=== PATIENT | female | born 1965 | race Caucasian/White ===

== ENCOUNTER → 2018-02-03 15:39 | Outpatient (POV) | payer OTHER, SELFPAY | PROVIDERS: Visit Provider Nurse Practitioner Acute Care | DX: Z00.00 Encounter for general adult medical examination without abnormal findings (principal) ==

== ENCOUNTER → 2018-03-25 15:11 | Outpatient (POV) | payer OTHER, SELFPAY | PROVIDERS: Visit Provider Dermatology | DX: Z00.00 Encounter for general adult medical examination without abnormal findings (principal) ==

== ENCOUNTER → 2018-06-05 14:09 | Outpatient (CLI) | payer BC, SELFPAY ==
--- NOTE | 2018-06-05 14:17 | XR_ITS ---
XR sacrum coccyx min 2V CLINICAL INDICATION: Posttraumatic pain ITS.REASON: INJURY COCCYX ORDERING PHYSICIAN: Ayanna Sabillon PATIENT AGE: 52 years Comparison: None FINDINGS: No fracture or dislocation. Minimal vascular calcification noted IMPRESSION: No acute finding
== END ==
PROVIDERS: PCP Nurse Practitioner Family; Visit Provider Nurse Practitioner Family
DX: S39.92XA Unspecified injury of lower back, initial encounter (principal); M53.3 Sacrococcygeal disorders, not elsewhere classified
CPT/HCPCS: 72220

== ENCOUNTER → 2019-02-20 14:10 | Outpatient (CLI) | payer BC, SELFPAY ==
--- NOTE | 2019-02-20 14:16 | CA_ITS ---
APPROVED REPORT EXAM: Comprehensive 2D, Doppler, and color-flow Echocardiogram Lineman: Keyana Carey RDCS Ht: 5 ft 3 in Wt: 152lbs BSA: 1.72 BP: 110/76 mmHg Indications: Shortness of Breath, Hypertension/HDD,RECENT PNEUMONIA 2D Dimensions LVOT 1.84 cm (M/F) 1.5-2.5 M-Mode Dimensions RVDd 1.75 cm (0.9-2.6) LVDd 4.23 cm (3.5-5.7) LVDs 2.68 cm (3.5-5.7) IVSd 1.11 cm (0.6-1.1) PWd 0.92 cm (0.6-1.1) EF (Teich) 52.60% FS 26.70% EDV (Teich) 79.90 mL ESV (Teich) 37.90 mL LV Diastology E/A Ratio 0.98 Mitral Valve MV A Velocity 68.00 (40-130 cm/s) Left Ventricle Left atrium is mildly enlarged, left ventricle is normal size, mild concentric left ventricular hypertrophy, visually estimated ejection fraction 55% with no regional wall motion abnormality, grade 1 diastolic dysfunction seen without tissue Doppler evidence of raise left atrial pressure. Right Ventricle Right atrium and right ventricular normal size and contractility. Aortic Valve Aortic valve is minimally thickened and fibrosed., There is no aortic stenosis aortic insufficiency. Mitral Valve Mitral valve is grossly normal, there is mild mitral regurgitation. Pulmonic Valve Tricuspid valve is grossly normal, there is mild tricuspid regurgitation. Great Vessels Aortic root is normal size. Pericardium No significant pericardial effusion noted. Conclusion 1. Mildly enlarged left atrium, normal left ventricular size, mild concentric left ventricular hypertrophy, visually estimated ejection fraction 55% with no regional wall motion abnormality, grade 1 diastolic dysfunction seen without tissue Doppler evidence of raise left atrial pressure. 2. Mild mitral and tricuspid regurgitation 3. No significant pericardial effusion noted. Electronically signed by : Joseph Bolden, 02/20/2019 20:50:37
--- NOTE | 2019-02-20 14:51 | XR_ITS ---
PROCEDURE: XR CHEST 2V CLINICAL HISTORY: PNEUMONIA OF RIGHT LUNG COMPARISON: No exams were available for comparison FINDINGS: The cardiomediastinal silhouette and pulmonary vascularity are within normal limits. The lungs are clear without infiltrates, suspicious nodules, or pleural effusions. No acute bony abnormalities. IMPRESSION: No acute findings. Dictated by: Fortino Barrow MD 02/20/2019 15:33 Electronically signed by Fortino Barrow MD in [place] 02/20/2019 15:33
== END ==
PROVIDERS: PCP Nurse Practitioner Family; Visit Provider Nurse Practitioner
DX: J18.9 Pneumonia, unspecified organism (principal); R06.02 Shortness of breath
CPT/HCPCS: 71046; 93306

== ENCOUNTER → 2021-04-26 17:51 | Outpatient (CLI) | payer OTHER, SELFPAY | PROVIDERS: Visit Provider Nurse Practitioner | DX: U07.1 COVID-19 (principal) | CPT/HCPCS: C9803; U0003; U0005 ==

== ENCOUNTER → 2022-01-23 15:25 | Outpatient (POV) | payer OTHER, SELFPAY | PROVIDERS: Visit Provider Dermatology | DX: Z00.00 Encounter for general adult medical examination without abnormal findings (principal) ==

== ENCOUNTER 2022-10-21 08:15 | Emergency (ER) | payer BC, SELFPAY ==
[2022-10-21 08:15] VITALS: BP 149/81; PULSE 87; RESP 18; TEMP 36.7; O2SAT 97; BMI 26.7
--- NOTE | 2022-10-21 08:35 | EXP.UTC ---
Discharge Plan Disposition Patient Disposition: Home, Self-Care Condition: Good Prescriptions Prescriptions: New amoxicillin [amoxicillin] 875 mg tablet 875 mg PO Q12H Qty: 20 0RF benzonatate [benzonatate] 100 mg capsule 100 mg PO TIDP PRN (Reason: Cough) Qty: 30 0RF methylprednisolone 4 mg Tablets,Dose Pack 4 mg PO DIRECTED Qty: 21 0RF No Action estradiol 1 mg tablet 1 mg PO DAILY Rx Instructions: off 1 week; repeat cycle estradiol 0.5 mg tablet 0.5 mg PO DAILY buspirone 10 mg tablet 10 mg PO BID hydrochlorothiazide 25 mg tablet 25 mg PO DAILY ropinirole 2 MG tablet 2 mg PO DAILY furosemide 20 MG tablet 20 mg PO DAILY Label Comments: take 1 tablet by mouth once daily metoprolol tartrate 25 MG tablet 25 mg PO DAILY methylprednisolone 4 MG tablets,dose pack 4 mg PO DIRECTED 6 Days Qty: 21 0RF amoxicillin-pot clavulanate 1 EACH tablet 1 tab PO Q12H 10 Days Qty: 20 0RF Lactobacillus acidophilus 1 EACH capsule 1 each PO BID 30 Days Qty: 60 0RF promethazine-DM 120 ML syrup 5 ml PO Q6HP PRN (Reason: Cough) Qty: 240 0RF Referrals Follow up/Referrals: Ayanna Sabillon APRN [Primary Care Provider] - See instructions Activity Restrictions/Add. Instructions Additional Instructions/Restrictions: Drink plenty of fluids. Take tylenol or ibuprofen for pain or fever. Take the medications as directed. Follow up with your regular doctor. GO TO THE ER FOR ANY WORSENING SYMPTOMS Don't start the oral steroids until tomorrow, since you had the shot here today. Clinical Impressions Clinical Impression: Pharyngitis, Sinusitis Stand Alone Forms Stand Alone Forms: Work/School Release Instructions Patient Instructions: Sinusitis, DI for Sinusitis Discharge ED Provider: Alton Rodriges [facility] General Stated complaint: cough,sore throat,headache Mode of Arrival: Ambulatory Source of Information: Patient Limitations: No Limitations Time Seen by Provider: 10/21/22 08:34 Description of Symptoms (Recalled from Triage Doc. by RN): Patient states she has a sore throat, cough and runny nose. States the sore throat comes and goes and is worse in the mornings. HEENT Symptoms (Recalled from RN notes): Yes Resp Symptoms (Recalled from RN notes): No Skin Symptoms (Recalled from RN notes): No MS Symptoms (Recalled from RN notes): No Functional Status (Recalled from RN notes): wnl History of Present Illness Provider Complaint: She states that for the past 3 days she has had worsening sore throat and sinus congestion; Related Data Home Medications Medication Instructions Recorded Confirmed buspirone 10 mg tablet 10 mg PO BID STOMACH ISSUES 05/04/19 06/05/19 estradiol 0.5 mg tablet 0.5 mg PO DAILY HORMONE REPLACEMENT 05/04/19 06/05/19 estradiol 1 mg tablet 1 mg PO DAILY HORMONE REPLACEMENT 05/04/19 06/05/19 hydrochlorothiazide 25 mg tablet 25 mg PO DAILY Fluid 05/04/19 06/05/19 furosemide 20 mg tablet 20 mg PO DAILY Fluid 06/05/19 06/05/19 metoprolol tartrate 25 mg tablet 25 mg PO DAILY Hypertension 06/05/19 06/05/19 ropinirole 2 mg tablet 2 mg PO DAILY RLS 06/05/19 06/05/19 Previous Rx's Medication Instructions Recorded Lactobacillus acidophilus 10 1 each PO BID 30 days #60 caps 06/05/19 billion cell capsule amoxicillin 875 mg-potassium 1 tab PO Q12H 10 days #20 tabs 06/05/19 clavulanate 125 mg tablet methylprednisolone 4 mg tablets in 4 mg PO DIRECTED 6 days ##21 06/05/19 a dose pack promethazine-DM 6.25 mg-15 mg/5 mL 5 ml PO Q6HP PRN Cough ##240 06/05/19 oral syrup amoxicillin 875 mg tablet 875 mg PO Q12H #20 tabs 10/21/22 benzonatate 100 mg capsule 100 mg PO TIDP PRN Cough #30 caps 10/21/22 methylprednisolone 4 mg tablets in 4 mg PO DIRECTED #21 tabs 10/21/22 a dose pack Allergies Allergy/AdvReac Type Severity Reaction Status Date / Time omeprazole [From Prilosec] Allergy Se
[2022-10-21 08:39] LABS: UTC Strep Screen (Rapid) Negative (Negative)
[2022-10-21 09:10] VITALS: BP 149/81; PULSE 87; RESP 18; TEMP 36.7; O2SAT 97
== END 2022-10-21 09:10 | disposition home or self-care (01) ==
PROVIDERS: Emergency Provider Nurse Practitioner Family; PCP Nurse Practitioner Family
DX: J01.90 Acute sinusitis, unspecified (principal); J02.9 Acute pharyngitis, unspecified
CPT/HCPCS: 87880; 96372; 99204; 99212; G0463; J0696

== ENCOUNTER → 2023-01-01 08:50 | Outpatient (CLI) | payer BC, SELFPAY ==
--- NOTE | 2023-01-01 08:54 | XR_ITS ---
FINAL REPORT CLINICAL HISTORY: SCREENING FOR OSTEOPOROSIS we will, premenopausal female FINDINGS: Using L1-4, the bone mineral density of the spine is now 1.241 g/cm2, corresponding to T-score of 1.8. Using the left hip, the bone mineral density of the femoral neck is 1.163 g/cm2, corresponding to a T-score of 1.8. Using the right hip, the bone mineral density of the femoral neck is 1.185 g/cm2, corresponding to a T-score of 2.0. IMPRESSION: Normal bone mineral density of the lumbar spine and bilateral hips. Reviewed, Interpreted and Dictated by Dandre Hernandez MD Transcribed by Catalino Ozuna Authenticated and . [facility]
== END ==
PROVIDERS: PCP Nurse Practitioner Family; Visit Provider Nurse Practitioner Family
DX: Z13.820 Encounter for screening for osteoporosis (principal)
CPT/HCPCS: 77080

== ENCOUNTER 2023-06-26 12:24 | Emergency (ER) | payer BC, SELFPAY ==
[2023-06-26 13:11] VITALS: BP 121/67; PULSE 74; RESP 16; TEMP 36.7; O2SAT 97; BMI 27.1
--- NOTE | 2023-06-26 13:22 | EXP.UTC ---
Discharge Plan Disposition Patient Disposition: Home, Self-Care Condition: Good Prescriptions Prescriptions: No Action estradiol 1 mg tablet 1 mg PO DAILY Rx Instructions: off 1 week; repeat cycle estradiol 0.5 mg tablet 0.5 mg PO DAILY buspirone 10 mg tablet 10 mg PO BID hydrochlorothiazide 25 mg tablet 25 mg PO DAILY ropinirole 2 MG tablet 2 mg PO DAILY furosemide 20 MG tablet 20 mg PO DAILY Patient Comments: take 1 tablet by mouth once daily metoprolol tartrate 25 MG tablet 25 mg PO DAILY methylprednisolone 4 MG tablets,dose pack 4 mg PO DIRECTED 6 Days Qty: 21 0RF amoxicillin-pot clavulanate 1 EACH tablet 1 tab PO Q12H 10 Days Qty: 20 0RF Lactobacillus acidophilus 1 EACH capsule 1 each PO BID 30 Days Qty: 60 0RF promethazine-DM 120 ML syrup 5 ml PO Q6HP PRN (Reason: Cough) Qty: 240 0RF amoxicillin [amoxicillin] 875 mg tablet 875 mg PO Q12H Qty: 20 0RF benzonatate [benzonatate] 100 mg capsule 100 mg PO TIDP PRN (Reason: Cough) Qty: 30 0RF methylprednisolone 4 mg Tablets,Dose Pack 4 mg PO DIRECTED Qty: 21 0RF Referrals Follow up/Referrals: Provider,Referral, MD [Primary Care Provider] - See instructions Activity Restrictions/Add. Instructions Additional Instructions/Restrictions: Call your Oral Surgeon and discuss your surgery to see if the surgery may have involved sinus lift Follow up with your Family Doctor Your COVID test should be back later today or in the morning Follow up immedately with your Surgeon/Family Doctor if you have any fever Clinical Impressions Clinical Impression: Flu-like symptoms Stand Alone Forms Stand Alone Forms: Work/School Release Instructions Patient Instructions: DI for Nasal Congestion Discharge ED Provider: Leeanne Santos [facility] [place] HPI General Stated complaint: head congestion Mode of Arrival: Ambulatory Source of Information: Patient Limitations: No Limitations Time Seen by Provider: 06/26/23 13:22 Description of Symptoms (Recalled from Triage Doc. by RN): States she had oral surgery yesterday and approx 4 hours after she began to have coughing, headache and nasal drainage. HEENT Symptoms (Recalled from RN notes): Yes Resp Symptoms (Recalled from RN notes): No Skin Symptoms (Recalled from RN notes): No MS Symptoms (Recalled from RN notes): No Functional Status (Recalled from RN notes): wnl History of Present Illness Provider Complaint: Patient States that she had dental implant surgery yesterday and follow up with with surgeon this morning and they said everything looks good. States that she was worried she may be getting flu or something States that she is having burning like sensation in her left nostril, nasal congestion, and headache Related Data Home Medications Medication Instructions Recorded Confirmed buspirone 10 mg tablet 10 mg PO BID STOMACH ISSUES 05/04/19 06/05/19 estradiol 0.5 mg tablet 0.5 mg PO DAILY HORMONE REPLACEMENT 05/04/19 06/05/19 estradiol 1 mg tablet 1 mg PO DAILY HORMONE REPLACEMENT 05/04/19 06/05/19 hydrochlorothiazide 25 mg tablet 25 mg PO DAILY Fluid 05/04/19 06/05/19 furosemide 20 mg tablet 20 mg PO DAILY Fluid 06/05/19 06/05/19 metoprolol tartrate 25 mg tablet 25 mg PO DAILY Hypertension 06/05/19 06/05/19 ropinirole 2 mg tablet 2 mg PO DAILY RLS 06/05/19 06/05/19 Previous Rx's Medication Instructions Recorded Lactobacillus acidophilus 10 1 each PO BID 30 days #60 caps 06/05/19 billion cell capsule amoxicillin 875 mg-potassium 1 tab PO Q12H 10 days #20 tabs 06/05/19 clavulanate 125 mg tablet methylprednisolone 4 mg tablets in 4 mg PO DIRECTED 6 days ##21 06/05/19 a dose pack promethazine-DM 6.25 mg-15 mg/5 mL 5 ml PO Q6HP PRN Cough ##240 06/05/19 oral syrup amoxicillin 875 mg tablet 875 mg PO Q12H #20 tabs 10/21/22 benzonatate 100 mg capsule 100 mg PO TIDP PRN Cough #30 caps 10/21/22 methylprednisolone 4 mg tablets in 4 mg PO DIRECTED #21 tabs 10/21/22 a dose pack Allergies Allergy/AdvReac Type Severity Reaction Status Date / Time omeprazole [From Prilosec] Allergy Severe angioedema Verified 05/04/19 11:16 meperidine [From Demerol] Allergy Verified 05/10/19 09:25 Worker's Comp Is this a Worker's Comp case?: No [facility] Disclaimer: The information contained in this section may have been updated after the patient was seen, as this information can be updated by other users. Social History Smoking Status: Never smoker alcohol intake: never current occupational status: other Travel in the last 8 weeks: None ROS Obtained: Yes All systems reviewed & no additional complaints except as documented and Yes Systems reviewed as appropriate & no additional complaints except as documented Constitutional Constitutional: Reports system reviewed and no additional complaints, except as documented, Reports as per HPI, Reports body ache, Denies fever(s) and Reports headache(s) ENT Ears, Nose, Mouth, and Throat: Reports system reviewed and no additional complaints, except as documented, Reports as per HPI, Reports headache(s) and Reports nasal congestion (burning in left side of nose) Cardiovascular Cardiovascular: Reports system reviewed and no additional complaints, except as documented and Reports as per HPI Respiratory Respiratory: Reports system reviewed and no additional complaints, except as documented, Reports as per HPI and Reports cough Gastrointestinal Gastrointestingal: Reports system reviewed and no additional complaints, except as documented and as per HPI Musculoskeletal Musculoskeletal: Reports system reviewed and no additional complaints, except as documented and Reports as per HPI Integumentary/Breasts Skin/Breast: Reports system reviewed and no additional complaints, except as documented and Reports as per HPI Comments: no swelling no bruising noted Neurologic Neurologic: Reports headache(s) Physical Exam General General appearance: alert and in no apparent distress ENT ENT exam: Present mucous membranes moist Expanded ENT Exam Nose exam: Present other (reports clear drainage an burning like sensation in left nostril) Respiratory Respiratory exam: Present normal lung sounds bilaterally; Absent respiratory distress or wheezes Cardiovascular Cardiovascular exam: Present regular rate, normal rhythm and normal heart sounds Abdominal Exam Abdominal exam: Present soft and normal bowel sounds; Absent distention or tenderness Neurological Exam Neurological exam: Present alert, oriented X3 and normal gait Medical Decision Making Isaac Inquiry Pt receiving controlled substance: No Isaac was queried for this patient: No Vital Signs: 06/26/23 13:11 Temperature 98.1 F Temperature Source Oral Pulse Rate [Radial] 74 Respiratory Rate 16 Blood Pressure [Right Arm] 121/67 Blood Pressure Mean [Right Arm] 85 Blood Pressure Source [Right Arm] Automatic Cuff Blood Pressure Position [Right Arm] Sitting 02 Sat by Pulse Oximetry 97 Oxygen Delivery Method Room Air Lab Data Lab results reviewed: Yes I reviewed the patient's lab results. Medical Decision Narrative: DIscussed transfer to the ED since patient was less than 30 days post op and she declined States that she seen oral surgeon this morning but didnt inform them of the burning inside her left nostril and flu like symptoms
[2023-06-26 13:42] LABS: UTC Influenza A Antigen Negative (Negative)
[2023-06-26 13:43] LABS: UTC Influenza B Antigen Negative (Negative)
[2023-06-26 13:53] LABS: Adenovirus,PCR Not Detected (NotDetected); Coronavirus 19, PCR Not Detected (NotDetected); Coronavirus 229E Not Detected (NotDetected); Coronavirus NL63 Not Detected (NotDetected); Coronavirus OC43 Not Detected (NotDetected); Coronovirus HKU1,PCR Not Detected (NotDetected); Human Metapneumovirus Not Detected (NotDetected); Influenza A, PCR Not Detected (NotDetected); Influenza AH1, 2009 Not Detected (NotDetected); Influenza AH1, PCR Not Detected (NotDetected); Influenza AH3,PCR Not Detected (NotDetected); Influenza B, PCR Not Detected (NotDetected); Parainfluenza 1, PCR Not Detected (NotDetected); Parainfluenza 2, PCR Not Detected (NotDetected); Parainfluenza 3, PCR Not Detected (NotDetected); Parainfluenza 4, PCR Not Detected (NotDetected); Respiratory Syncytial Virus Not Detected (NotDetected); Rhinovirus/Enterovirus Not Detected (NotDetected)
[2023-06-26 13:59] VITALS: BP 121/67; PULSE 74; RESP 16; TEMP 36.7; O2SAT 97
== END 2023-06-26 14:03 | disposition home or self-care (01) ==
PROVIDERS: Emergency Provider Nurse Practitioner
DX: R51.9 Headache, unspecified (principal); R09.81 Nasal congestion
CPT/HCPCS: 87632; 87635; 87804; 99212; 99213; G0463

== ENCOUNTER 2024-06-07 08:14 | Emergency (ER) | payer BC, SELFPAY ==
[2024-06-07 08:30] VITALS: BP 128/66; PULSE 75; RESP 22; TEMP 36.8; O2SAT 95; BMI 26.7
[2024-06-07 08:44] LABS: UTC Influenza A Antigen Positive (Negative); UTC Influenza B Antigen Negative (Negative)
--- NOTE | 2024-06-07 08:54 | ED_ITS ---
Discharge Plan Disposition Patient Disposition: Home, Self-Care Condition: Good Prescriptions Prescriptions: New ondansetron 4 mg tablet,disintegrating 4 mg PO Q8H PRN (Reason: nausea and vomiting) Qty: 10 0RF No Action ibuprofen 800 mg tablet 800 mg PO PRN Patient Comments: TAKE 1 TABLET BY MOUTH EVERY 8 HOURS NEEDED FOR PAIN chlorhexidine gluconate 0.12 % mouthwash 1 applic PO BID Patient Comments: SWISH 15 ML IN MOUTH GENTY FOR 30 SECONDS AND SPIT OUT TWICE DAILY meloxicam 15 mg tablet 15 mg PO DAILY Patient Comments: TAKE 1 TABLET BY MOUTH EVERY DAY amoxicillin 500 mg capsule 500 mg PO DAILY estradiol 1 mg tablet 1 mg PO DAILY Rx Instructions: off 1 week; repeat cycle estradiol 0.5 mg tablet 0.5 mg PO DAILY buspirone 10 mg tablet 10 mg PO BID hydrochlorothiazide 25 mg tablet 25 mg PO DAILY eszopiclone 3 mg tablet 3 mg PO HS Patient Comments: TAKE 1 TABLET BY MOUTH AT NIGHT potassium chloride 20 mEq tablet,ER particles/crystals 20 meq PO DAILY buspirone 10 mg tablet 10 mg PO BID Qty: 60 12RF Rx Instructions: 1 tablet p.o. twice daily erythromycin 250 mg tablet 250 mg PO QAC Qty: 90 12RF Rx Instructions: 1 p.o. AC (before meals) ropinirole 2 MG tablet 2 mg PO DAILY furosemide 20 MG tablet 20 mg PO DAILY Patient Comments: take 1 tablet by mouth once daily metoprolol tartrate 25 MG tablet 25 mg PO DAILY benzonatate [benzonatate] 100 mg capsule 100 mg PO TIDP PRN (Reason: Cough) Qty: 30 0RF Referrals Follow up/Referrals: Bushra Connors APRN [Primary Care Provider] - See instructions Activity Restrictions/Add. Instructions Additional Instructions/Restrictions: * Too late to start Tamiflu. Most effective when started within 48 hours of symptoms onset * Lots of rest * Increase Fluids water, Gatorade, powerade, pedialyte,if infant/toddler/child * Alternate Tylenol and / or ibuprofen as discussed for fever, aches, chills Follow up IMMEDIATELY with your family doctor for new or worsening Symptoms OR no noticeable improvement over the next 48-72 hours, 911 for difficulty or breathing * You or your child area contagious until no fever, aches, chills for 24 hours with medication for symptoms * Help Prevent the spread of influenza: * ?Wash your hands often. Use soap and water. Wash your hands after you use the bathroom, change a child's diapers, or sneeze. Wash your hands before you prepare or eat food. Use gel hand cleanser that has 60% alcohol, when soap and water are not available. Do not touch your eyes, nose, or mouth unless you have washed your hands first. * Cover your mouth when you sneeze or cough. Cough into a tissue or the bend of your arm. If you use a tissue, throw it away immediately and wash your hands. * Clean shared items with a germ-killing ware cleaner. Clean table surfaces, doorknobs, and light switches. Do not share towels, silverware, and dishes with people who are sick. Wash bed sheets, towels, silverware, and dishes with soap and water. * Wear a mask over your mouth and nose if you are sick. The face mask may help protect others from becoming infected with the flu. Wear the mask when in common areas of your home or if you seek care with a healthcare provider. * Stay away from others if you are sick. Stay at home until 24 hours after your fever and symptoms are gone. Clinical Impressions Clinical Impression: Influenza Stand Alone Forms Stand Alone Forms: Work/School Release Instructions Patient Instructions: Influenza, DI for Influenza -- Adult Print Language Print Language: Libyan Discharge ED Provider: Leeanne Santos [facility] General Stated complaint: cough, bodyaches Mode of Arrival: Ambulatory Source of Information: Patient Limitations: No Limitations Time Seen by Provider: 06/07/24 08:54 Description of Symptoms (Recalled from Triage Doc. by RN): PATIENT C/O CHILLS, VOMITING, DIARRHEA, HEADACHE AND COUGH THAT STARTED SATURDAY HEENT Symptoms (Recalled from RN notes): Yes Resp Symptoms (Recalled from RN notes): Yes Skin Symptoms (Recalled from RN notes): No MS Symptoms (Recalled from RN notes): No Functional Status (Recalled from RN notes): WNL History of Present Illness Provider Complaint: Patient states that she started feeling bad on with fever, chills, body aches, and N/V/D States that she feels like she may have the flu Related Data Home Medications ?Medication ?Instructions ?Recorded ?Confirmed buspirone 10 mg tablet 10 mg PO BID STOMACH ISSUES 05/04/19 02/26/24 estradiol 0.5 mg tablet 0.5 mg PO DAILY HORMONE REPLACEMENT 05/04/19 02/26/24 estradiol 1 mg tablet 1 mg PO DAILY HORMONE REPLACEMENT 05/04/19 02/26/24 hydrochlorothiazide 25 mg tablet 25 mg PO DAILY Fluid 05/04/19 02/26/24 furosemide 20 mg tablet 20 mg PO DAILY Fluid 06/05/19 02/26/24 metoprolol tartrate 25 mg tablet 25 mg PO DAILY Hypertension 06/05/19 02/26/24 ropinirole 2 mg tablet 2 mg PO DAILY RLS 06/05/19 02/26/24 amoxicillin 500 mg capsule 500 mg PO DAILY 07/11/23 02/26/24 chlorhexidine gluconate 0.12 % 1 applic PO BID 07/11/23 02/26/24 mouthwash ibuprofen 800 mg tablet 800 mg PO PRN 07/11/23 02/26/24 meloxicam 15 mg tablet 15 mg PO DAILY 07/11/23 02/26/24 eszopiclone 3 mg tablet 3 mg PO HS 02/26/24 02/26/24 potassium chloride 20 mEq 20 meq PO DAILY 02/26/24 02/26/24 tablet,extended release(part/cryst) Previous Rx's ?Medication ?Instructions ?Recorded benzonatate 100 mg capsule 100 mg PO TIDP PRN Cough #30 caps 10/21/22 buspirone 10 mg tablet 10 mg PO BID #60 tabs 02/26/24 erythromycin 250 mg tablet 250 mg PO QAC #90 tabs 02/26/24 ondansetron 4 mg disintegrating 4 mg PO Q8H PRN nausea and 06/07/24 tablet vomiting #10 tabs Allergies Allergy/AdvReac Type Severity Reaction Status Date / Time omeprazole (From Prilosec) Allergy Severe angioedema Verified 02/26/24 14:26 meperidine (From Demerol) Allergy Verified 02/26/24 14:26 Worker's Comp Is this a Worker's Comp case?: No [facility] Disclaimer: The information contained in this section may have been updated after the patient was seen, as this information can be updated by other users. Medical History Arthritis Migraine Hypertension Anxiety History of tear of meniscus of knee joint Surgical History History of hysterectomy History of cholecystectomy History of carpal tunnel surgery Family History Other Cancer Coronary artery disease Hyperlipidemia Hypertension Social History Smoking Status: Former smoker smoking status start date: 2011 alcohol intake: current alcohol intake frequency: holidays/special occasions only substance use type: denies use current occupational status: employed Travel in the last 8 weeks: None household members: spouse housing: house marital status: number of children: 2 Have you lived/traveled outside [place] in past 30 days?: No Contact w/someone who lives/traveled outside US past 30 days?: No Exposure to someone with infectious disease in past 14 days?: No Do you have a fever (greater than 100.4 F or 38 C)?: No Have you tested positive for COVID-19: No Exposed to someone with COVID-19 in past 14 days?: No Do you have a sore throat?: No Do you have a cough?: No Do you have any weakness?: No Do you have any diarrhea?: No Are you experiencing any unusual bleeding?: No Do you have any muscle aches/pain?: No Do you have any abdominal pain?: No Are you experiencing loss of taste or smell?: No ROS Obtained: Yes All systems reviewed & no additional complaints except as documented and Yes Systems reviewed as appropriate & no additional complaints except as documented Constitutional Constitutional: Reports system reviewed and no additional complaints, except as documented, Reports as per HPI, Reports body ache, Reports chills, Reports fever(s) and Reports headache(s) ENT Ears, Nose, Mouth, and Throat: Reports system reviewed and no additional complaints, except as documented, Reports as per HPI and Reports headache(s) Respiratory Respiratory: Reports system reviewed and no additional complaints, except as documented and Reports as per HPI Gastrointestinal Gastrointestingal: Reports system reviewed and no additional complaints, except as documented, as per HPI, diarrhea, nausea and vomiting; Denies abdominal pain Neurologic Neurologic: Reports headache(s) Physical Exam General General appearance: alert and in no apparent distress ENT ENT exam: Present normal oropharynx, mucous membranes moist and TM's normal bilaterally Respiratory Respiratory exam: Present normal lung sounds bilaterally; Absent respiratory distress or wheezes Cardiovascular Cardiovascular exam: Present regular rate, normal rhythm and normal heart sounds Abdominal Exam Abdominal exam: Present soft and normal bowel sounds; Absent distention or tenderness Neurological Exam Neurological exam: Present alert, oriented X3 and normal gait Medical Decision Making Medical Records Screening: Per USPSTF and CDC recommendations, given the prevalence of disease in our [facility], it is our hospital?s policy to screen for HIV and viral Hepatitis for all patients aged 18 and over and those with ongoing risk factors. Isaac Inquiry Pt receiving controlled substance: No Isaac was queried for this patient: No Vital Signs: 06/07/24 08:30 Temperature 98.3 F Temperature Source Oral Pulse Rate [Left Brachial] 75 Respiratory Rate 22 Blood Pressure [Left Arm] 128/66 Blood Pressure Mean [Left Arm] 86 Blood Pressure Source [Left Arm] Automatic Cuff Blood Pressure Position [Left Arm] Sitting 02 Sat by Pulse Oximetry 95 Oxygen Delivery Method Room Air Lab Data Lab results reviewed: Yes I reviewed the patient's lab results. Lab Results 06/07/24 08:38: Influenza Type A Ag Positive A, Influenza Type B Ag Negative
[2024-06-07 09:14] VITALS: BP 128/66; PULSE 75; RESP 22; TEMP 36.8; O2SAT 95
== END 2024-06-07 09:18 | disposition home or self-care (01) ==
PROVIDERS: Emergency Provider Nurse Practitioner; PCP Nurse Practitioner
DX: J11.1 Influenza due to unidentified influenza virus with other respiratory manifestations (principal)
CPT/HCPCS: 87804; 99212; G0381